=== PATIENT | female | born 1940 | race Caucasian/White ===

== ENCOUNTER 2018-06-25 12:55 | Outpatient (CLI) | payer MEDICARE ==
--- NOTE | 2018-06-25 14:05 | MMO ---
Bilateral MAMMO Bilat Diag [facility]. CLINICAL HISTORY: Patient is 78 years old and is seen for diagnostic exam and palpable abnormality in the left breast. The patient has no family history of breast cancer. The patient has no personal history of cancer. VIEWS: The views performed were: bilateral craniocaudal with tomosynthesis; bilateral mediolateral oblique with tomosynthesis; and bilateral mediolateral. FILMS COMPARED: The present examination has been compared to prior imaging studies performed at [facility] on 12/31/2012, 01/01/2014 and 06/25/2018. MAMMOGRAM FINDINGS: There are scattered fibroglandular densities. Finding 1: There is an oval mass seen in the outer region of the left breast. This is in the region of reported palpable hematoma. Sonographic interrogation of this region demonstrates a benign fluid collection compatible with hematoma. Finding 2: There are benign appearing calcifications seen in both breasts. There are no suspicious masses, suspicious calcifications, or new areas of architectural distortion. IMPRESSION: THERE IS NO MAMMOGRAPHIC EVIDENCE OF MALIGNANCY. A ROUTINE FOLLOW-UP MAMMOGRAM IN 1 YEAR IS RECOMMENDED. THE RESULTS OF THIS EXAM WERE SENT TO THE PATIENT. ACR BI-RADS Category 2 - Benign finding MAMMOGRAPHY NOTE: 1. A negative mammogram report should not delay a biopsy if a dominant of clinically suspicious mass is present. 2. Approximately 10% to 15% of breast cancers are not detected by mammography. 3. Adenosis and dense breasts may obscure an underlying neoplasm.
--- NOTE | 2018-06-25 14:07 | ULT ---
LIMITED LEFT BREAST ULTRASOUND: Date: 06/25/18 PROVIDED CLINICAL HISTORY: Status post left breast trauma with bruising and hematoma. FINDINGS: Limited sonographic interrogation of the left breast was performed in the region of palpable concern. There is a large fluid collection present measuring about 4.7 cm in greatest transverse dimension wi thout evidence for internal flow or other concerning features. IMPRESSION: BIRADS Category 2 - Benign findings. 4.7 cm fluid collection in the left breast Is compatible with he matoma. Annual screening mammography is recommended. POS: OFF
--- NOTE | 2018-06-25 14:35 | BD ---
DEXA BONE DENSITY SCAN: 06/25/2018 HISTORY: Postmenopausal female under screening for osteoporosis. COMPARISON: 01/01/2014 FINDINGS: LUMBAR SPINE BMD (g/cm2) T-SCORE PREVIOUS T-SCORE L1 0.979 -0.1 -0.3 L2 1.071 0.4 -0.2 L3 1.149 0.6 -0.9 L4 1.067 0.1 -0.2 TOTAL 1.071 0.2 -0.4 FEMORAL NECK 0.634 -1.9 -2.3 TOTAL PROXIMAL FEMUR 0.933 -0.1 -0.9 The bone mineral density within the total proximal femur has increased by 12.4% when compared to the prior examination. The lumbar spine bone mineral density has increased by 7% when compared to the pr ior examination. FRAX: The WHO Fracture Risk Assessment Tool reports a 10-year fracture risk for a major osteoporosis fracture at 20% and for hip fracture 4.7%. IMPRESSION: 1. Normal lumbar spine bone mineral density. 2. Osteopenia within the femoral neck, correlating with a moderately increased risk for fracture. POS: OFF
== END 2018-06-25 12:56 | disposition home or self-care (01) ==
LOC: BICMAMMO 12:55
PROVIDERS: ATTEND Nurse Practitioner Family
DX: S20.02XA Contusion of left breast, initial encounter (principal); Z78.0 Asymptomatic menopausal state; Z87.39 Personal history of other diseases of the musculoskeletal system and connective tissue; M85.859 Other specified disorders of bone density and structure, unspecified thigh
CPT/HCPCS: 76642; 77066; 77080; G0279

== ENCOUNTER 2018-09-16 11:47 | Outpatient (CLI) | payer MEDICARE ==
--- NOTE | 2018-09-16 12:20 | ULT ---
LIMITED SONOGRAPHIC EVALUATION OF RIGHT WRIST: Date: 09/16/18 HISTORY: Palpable abnormality right wrist. FINDINGS: There is a complicated cystic-appearing lesion at the lateral and volar aspect of the right wrist. Co josephine flow evaluation does not demonstrate flow within this structure. This area measures 1.1 cm x 0.8 cm x 1.1 cm in greatest dimensions. IMPRESSION: Complicated cystic lesion volar aspect right wrist, laterally. Findings are favored to represent a co mplicated ganglion cyst. Thrombosed pseudoaneurysm could not be entirely excluded based on sonographi c imaging. MRI right wrist with and without IV contrast is recommended. POS: OFF
== END 2018-09-16 11:48 | disposition home or self-care (01) ==
LOC: BICULT 11:47
PROVIDERS: ATTEND Nurse Practitioner Family
DX: R22.32 Localized swelling, mass and lump, left upper limb (principal); R20.2 Paresthesia of skin; M25.831 Other specified joint disorders, right wrist
CPT/HCPCS: 76999